=== PATIENT | male | born 1945 | race Caucasian/White ===

== ENCOUNTER 2017-03-14 11:42 | Outpatient (CLI) | payer MEDICARE, OTHER | END 2017-03-14 11:43 | disposition home or self-care (01) | DX: C61 Malignant neoplasm of prostate (principal); M06.00 Rheumatoid arthritis without rheumatoid factor, unspecified site ==

== ENCOUNTER 2017-07-14 11:47 | Emergency (ER) | payer MEDICARE, OTHER ==
[2017-07-14] MEDS ORDERED: methylPREDNISolone SUCCINATE 125 MG/2 ML VIAL IVP STA (12:54)
--- NOTE | 2017-07-14 12:57 | ED Physician Documentation ---
History of Present Illness - Stated complaint Stated Complaint: L LEG PX - Chief complaint Chief Complaint: General - History obtained from History obtained from: Patient - History of Present Illness Timing: Other (72-year-old gentleman with long-standing severe rheumatoid arthritis. Is on low-dose prednisone at 5 mg a day and gets a Remicade infusion infusion every 5 weeks. 2 weeks ago he got his infusion, but he notes that he was from a different clothes shaker than his usual infusion. Approximately 10 days ago he developed without specific trauma severe pain to the bottom of the foot radiating to the toes and then up to the ankle on the left and sometimes up to the calf and distal posterior thigh. It has come and gone and is not controlled by his usual pain medication. He has had spasms in the leg on and off. There is no associated fever, shortness of breath, or chest pain. He does have long-standing severe neuropathy in his feet, and basically cannot feel his feet at all.) Review of Systems Constitutional: denies: Fever, Chills Cardiac: denies: Chest pain / pressure, Palpitations Respiratory: denies: Dyspnea, Cough GI: denies: Abdominal Pain, Vomiting, Diarrhea PD PAST MEDICAL HISTORY - Past Medical History Past Medical History: Yes Cardiovascular: Hypertension Respiratory: None Endocrine/Autoimmune: HyPOthyroidism GI: GI bleed, Hemorrhoids : Benign prostate hypertrophy, Retention, Frequency, Kidney stones HEENT: None Psych: Depression Musculoskeletal: Rheumatoid arthritis Derm: Herpes zoster - Past Surgical History Past Surgical History: Yes General: Appendectomy, Colonoscopy Ortho: Knee replacement, Other HEENT: Tonsil/Adenoidectomy - Present Medications Home Medications: Ambulatory Orders Medication Instructions Recorded Confirmed Alendronate Sodium [Fosamax] 70 mg PO DAILY 04/15/13 07/14/17 Chlorpheniramine Maleate [Allergy 4 mg PO BID PRN 04/15/13 07/14/17 Relief] Cholecalciferol (Vitamin D3) 2,000 unit PO DAILY 04/15/13 07/14/17 [Vitamin D] Cyanocobalamin (Vitamin B-12) 2,000 mcg PO DAILY 04/15/13 07/14/17 [Vitamin B-12] Docusate Sodium [Stool Softener] 300 mg PO DAILY 04/15/13 07/14/17 Magnesium Oxide [Magnesium] 500 mg PO DAILY 04/15/13 07/14/17 Metoprolol Tartrate [Lopressor] 25 mg PO BID 04/15/13 07/14/17 Multivitamin [Multi-Vitamin Daily] 1 each PO DAILY 04/15/13 07/14/17 Prednisone 5 mg PO DAILY 04/15/13 07/14/17 oxyCODONE/ACET 5/325 [Percocet 5 2 each PO Q4-6H PRN 04/15/13 07/14/17 mg/325 mg] Bicalutamide 50 mg PO DAILY 10/27/15 07/14/17 Aspirin [Aspir-Low] 81 mg PO DAILY 01/25/16 07/14/17 Remicade 500 mg IV ONCE 01/25/16 07/14/17 predniSONE [Deltasone] 20 mg PO [id number] #[id number] tab 07/14/17 - Allergies Allergies/Adverse Reactions: Allergies Allergy/AdvReac Type Severity Reaction Status Date / Time Penicillins Allergy Unknown Itching Verified 07/14/17 12:06 cortisone [Cortisone] AdvReac Intermediate Hallucinati Verified 07/14/17 12:06 ons sulfasalazine AdvReac Intermediate rapid Verified 07/14/17 12:06 [From Sulfazine] heart rate - Social History Does the pt smoke?: No Smoking Status: Never smoker Does the pt have substance abuse?: No - Immunizations Immunizations are current?: Yes PD ED PE NORMAL - Vitals Vital signs reviewed: Yes - General General: Alert and oriented X 3, No acute distress - Cardiac Cardiac: RRR, No murmur - Respiratory Respiratory: No respiratory distress, Clear bilaterally - Abdomen Abdomen: Non tender - Extremities Extremities: Other (Left leg is swollen, he is insensate about the feet, but has severe tenderness of the ankle and mild tenderness of the calf. The foot is warm and well perfused, although pedal pulses are not palpable.) - Neuro Neuro: Alert and oriented X 3, Normal speech - Psych Psych: Normal mood, Normal affect Results - Vitals Vitals: Vital Signs - 24 hr 07/14/17 11:59 Temperature 36.8 C Heart Rate 104 H Respiratory 20 Rate Blood Pressure 157/96 H O2 Saturation 98 Oxygen O2 Source Room air - Labs Labs: Laboratory Tests 07/14/17 07/14/17 07/14/17 13:06 13:06 15:15 WBC 20.2 H RBC 4.22 L Hgb 13.5 L Hct 39.1 L MCV 92.7 MCH 32.0 H MCHC 34.5 RDW 13.5 Plt Count 224 MPV 7.1 L Neut # 17.1 H Lymph # 1.2 L Shackelford # 1.7 H Eos # 0.0 Baso # 0.1 Absolute Nucleated RBC 0.00 Nucleated RBCs 0.0 Manual Slide Review Indicated Platelet Estimate NORMAL (130-450,000) Platelet Morphology PLATELET CLUMPING RBC Morph Micro Appear NORMAL APPEARANCE Sodium 134 L Potassium 4.2 Chloride 102 Carbon Dioxide 23 Anion Gap 9.0 BUN 34 H Creatinine 1.0 Estimated GFR (MDRD) 73 L Glucose 160 H Calcium 9.3 Total Bilirubin 0.9 AST 30 ALT 19 Alkaline Phosphatase 74 Total Protein 8.2 Albumin 4.0 Globulin 4.2 Albumin/Globulin Ratio 1.0 Lipase 21 L Fluid Source SYNOVIAL Fluid Color BLOODY Fluid Clarity BLOODY Fluid WBC UNMANNED EQUIPMENT OPERATOR Fluid RBC Not Reportable Fluid Neutrophils % 83 Fluid Lymphocytes % 17 Fld Mesothelial Cell % Not Reportable Fluid Crystals NONE SEEN - Rads (name of study) L leg DVt sono Radiology: Prelim report reviewed (neg for DVt per Dr Ayala) PD MEDICAL DECISION MAKING - ED course ED course: 72-year-old gentleman with severe RA presents with poorly differentiated leg pain that L on exam seems to stem from the ankle joint. X-rays were negative except for MTP dislocations with which the orthopedic clinical sales consultant felt were chronic. He taps the joints, no crystals, 83% neutrophils. Because of some clotting they were unable to tell me a total white blood cell counts. Dr. Purvis was notified of this and felt that it probably was not an infection but we can watch the cultures. In the meantime we will burst him with steroids for likely RA flare. - Consults Consults: Consulted (name) (Ck Purvis, drawer in stitch bonding machine ortho, he will see pt, potentially arthrocentesis of L ankle [id number]) Departure - Departure Disposition: 01 Home, Self Care Clinical Impression: Left leg pain Rheumatoid arthritis Qualifiers: Rheumatoid arthritis location: unspecified site Rheumatoid factor presence: with rheumatoid factor Qualified Code(s): M05.9 - Rheumatoid arthritis with rheumatoid factor, unspecified Leukocytosis Qualifiers: Leukocytosis type: leukemoid reaction Qualified Code(s): D72.823 - Leukemoid reaction Condition: Good Record reviewed to determine appropriate education?: Yes Instructions: ED Arthritis Rheumatoid Prescriptions: predniSONE [Deltasone] 20 mg PO [id number] #21 tab Comments: Call your doctor to arrange a follow-up appointment, make the next available appointment. In the interim, return anytime if worse or if new symptoms develop. Your blood pressure was elevated today on check into the emergency department. This does not mean that you have hypertension, it is a common phenomenon to come to the emergency department and have elevated blood pressure. I recommend that she see her primary care physician within the week to have it rechecked when you are feeling better.
[2017-07-14] MEDS ORDERED: methylPREDNISolone SUCCINATE 125 MG/2 ML VIAL ONE (13:18)
[2017-07-14 13:20] LABS: BASOPHILS # (AUTO) 0.1 10^3/uL (0.0-0.1); BASOPHILS % (AUTO) 0.5 %; EOSINOPHILS % (AUTO) 0.1 %; HCT - HEMATOCRIT 39.1 % (42.0-52.0); HGB - HEMOGLOBIN 13.5 g/dL (14.0-18.0); LYMPHOCYTES # (AUTO) 1.2 10^3/uL (1.5-3.5); LYMPHOCYTES % (AUTO) 6.2 %; MEAN CORPUSCULAR HGB CONC 34.5 g/dL (32.0-36.0); MEAN CORPUSCULAR VOLUME 92.7 fL (80.0-94.0); MEAN PLATELET VOLUME 7.1 fL (7.4-11.4); MONOCYTES # (AUTO) 1.7 10^3/uL (0.0-1.0); MONOCYTES % (AUTO) 8.6 %; NEUTROPHILS # (AUTO) 17.1 10^3/uL (1.5-6.6); NEUTROPHILS % (AUTO) 84.6 %; RED BLOOD COUNT 4.22 10^6/uL (4.70-6.10); RED CELL DISTRIBUTION WIDTH 13.5 % (12.0-15.0); UNCORRECTED WHITE BLOOD COUNT 20.2 x10^3/uL; WHITE BLOOD COUNT 20.2 x10^3/uL (4.8-10.8)
[2017-07-14 13:25] LABS: BILIRUBIN,TOTAL 0.9 mg/dL (0.2-1.0); CALCIUM 9.3 mg/dL (8.5-10.3); POTASSIUM 4.2 mmol/L (3.5-5.0); TOTAL PROTEIN 8.2 g/dL (6.7-8.2)
--- NOTE | 2017-07-14 14:09 | Ultrasound Report ---
LEFT LEG VENOUS DUPLEX: 07/14/2017 CLINICAL INDICATION: Swelling, pain. TECHNIQUE: Real-time sonographic vascular imaging was performed by the lunchroom worker through the left l ower extremity utilizing both color flow and Doppler spectral analysis. Multiple call center support representative stati c images were saved for review. FINDINGS: A left lower extremity venous sonogram is performed revealing the common femoral, superfici al femoral, profunda femoris, and popliteal veins to be adequately visualized without intraluminal de fects. There is normal venous compression, augmentation, phasicity, and spontaneity of venous flow. I n the calf, the visualized more cephalad portions of posterior tibial and peroneal veins are grossly compressible, without filling defects. IMPRESSION: NO EVIDENCE OF DEEP VENOUS THROMBOSIS. JOB #: [id number] EXT JOB #:[id number]
[2017-07-14 14:14] LABS: PLATELET ESTIMATE, MANUAL NORMAL (130-450,000) (NORMAL); PLATELET MORPHOLOGY PLATELET CLUMPING (NORMAL)
[2017-07-14] MEDS ORDERED: LIDOCAINE 2%-EPI 1:100000 20 ML MDV ONE (15:11)
--- NOTE | 2017-07-14 15:12 | XRAY Preliminary Report ---
Exam: XR Ankle 3 View LT IMPRESSION: Soft tissue swelling. [facility] SITE ID: [id number]
--- NOTE | 2017-07-14 15:14 | XRAY Preliminary Report ---
Exam: XR Foot 3 View LT IMPRESSION: 1. Soft tissue swelling. 2. Third MTP dislocation. [facility] SITE ID: [id number]
--- NOTE | 2017-07-14 15:15 | XRAY Report ---
EXAM: LEFT ANKLE RADIOGRAPHY EXAM DATE: 07/14/2017 02:40 PM. CLINICAL HISTORY: Leg pain, neuropathy,. COMPARISON: None. TECHNIQUE: 3 views. FINDINGS: Bones: Osteopenia. Small plantar calcaneal spur. No definite fracture or other bone lesion. Joints: Normal. No effusion. No subluxations. The ankle mortise is normally aligned. Soft Tissues: Mild soft tissue swelling over the malleoli. IMPRESSION: Soft tissue swelling. [facility] Referring Provider Line: [phone] SITE ID: [id number]
--- NOTE | 2017-07-14 15:17 | XRAY Report ---
EXAM: LEFT FOOT RADIOGRAPHY EXAM DATE: 07/14/2017 02:40 PM. CLINICAL HISTORY: Leg pain, neuropathy,. COMPARISON: None. TECHNIQUE: 3 views. FINDINGS: Bones: Osteopenia. Small plantar calcaneal spur. No definite acute fracture or other bone lesion. Joints: Complete dorsal dislocation of third middle phalanx at MTP joint. Joint spaces are generally well preserved. Soft Tissues: Diffuse soft tissue swelling. IMPRESSION: 1. Soft tissue swelling. 2. Third MTP dislocation. [facility] Referring Provider Line: [phone] SITE ID: [id number]
[2017-07-14 15:42] LABS: BF CLARITY BLOODY; BF COLOR BLOODY
--- NOTE | 2017-07-14 15:49 | CONSULTATION NOTE ---
DATE OF CONSULTATION: 07/14/2017 00:00:00 REQUESTING PROVIDER: Dr. Omar Martel, ED. CHIEF COMPLAINT: "My left ankle hurts." HISTORY OF PRESENT ILLNESS: The patient is a 72-year-old male with rheumatoid arthritis who has been on immunosuppressive drugs to control his inflammatory arthritis and also has a history of peripheral neuropathy who presents to the emergency room now with a 2-day history of increasing of le ft ankle pain. This has affected his ability to walk. He has had similar episodes in the past due to his rheumatoid arthritis, although it has never been quite this severe. The patient denies any fever or chills. PHYSICAL EXAMINATION: On exam today, the patient's left leg shows some mild diffuse edema in his lowe r extremity. He has some mild diffuse tenderness on palpation on the anterior aspect of his ankle. He has about 30 degrees of total ankle motion today with mild discomfort. Minimal erythema or warmth ar ound the ankle or calf area. STUDIES: X-rays that were taken shows no significant abnormalities about the ankle. LABORATORY: Has a white count elevated at 20,200. ASSESSMENT: Left ankle synovitis - unclear etiology. Could be a flareup of his rheumatoid arthritis v ersus other inflammatory arthritis such as gout versus a possible infectious origin. PLAN: I have discussed possible complications and diagnoses with the patient. He is agreeable to proc eed with an aspiration of his left ankle. After Betadine skin preparation, a 22 gauge needle was inserted into the anterior medial aspect of hi s left ankle. We were able to aspirate about 0.5 mL of blood-tinged synovial fluid. The patient tiffanie ated the aspiration procedure well. We sent the syringe with the fluid aspirated to microbiology for cell count, crystal analysis, stat G evelyn stains and aerobic and anaerobic cultures and sensitivities. Depending on the initial fluid analysis, will determine if we will be able to follow this as an outpa tient versus possible surgical intervention. JOB #: [id number] EXT JOB #:[id number]
[2017-07-14 16:23] LABS: LYMPHOCYTES %,BODY FLUID 17; NEUTROPHILS %, BF 83 %
[2017-07-14 16:51] VITALS: BP 138/90
== END 2017-07-14 16:45 | disposition home or self-care (01) ==
LOC: ED 11:47
DX: M65.872 Other synovitis and tenosynovitis, left ankle and foot (principal); M05.9 Rheumatoid arthritis with rheumatoid factor, unspecified; G62.9 Polyneuropathy, unspecified; D72.823 Leukemoid reaction; I10 Essential (primary) hypertension; E03.9 Hypothyroidism, unspecified; Z79.52 Long term (current) use of systemic steroids; Z79.82 Long term (current) use of aspirin
CPT/HCPCS: 20605; 36415; 80053; 83690; 85025; 87070; 87205; 89051; 89060; 96374; 99282; 99284

== ENCOUNTER 2018-02-19 21:47 | Outpatient (CLI) | payer MEDICARE, OTHER ==
--- NOTE | 2018-02-19 22:39 | Ultrasound Preliminary Report ---
Exam: US DUPLEX EXT VEINS RIGHT IMPRESSION: No evidence for deep venous thrombosis. [facility] SITE ID: [id number]
--- NOTE | 2018-02-19 22:40 | Ultrasound Report ---
EXAM: RIGHT LOWER EXTREMITY VENOUS ULTRASOUND EXAM DATE: 02/19/2018 10:31 PM. CLINICAL HISTORY: PERIPHERAL VASCULAR DISEASE, UNSPECIFIED. COMPARISON: None. TECHNIQUE: Real-time sonographic vascular imaging was performed by the warp scouring vat tender through the lower extremity utilizing both color-flow and Doppler spectral analysis. Multiple event marketing representative static koffi ges were saved for review. FINDINGS: Common Femoral Vein (CFV): Normal. CFV-GSV Junction: Normal. Profunda Femoral Vein (PFV): Normal. Femoral Vein (FV) Prox: Normal. Femoral Vein (FV) Mid: Normal. Femoral Vein (FV) Dist: Normal. Popliteal Vein: Normal. Posterior Tibial Veins: Normal. Peroneal Veins: Normal. Other: None. IMPRESSION: No evidence for deep venous thrombosis. [facility] Referring Provider Line: [phone] SITE ID: [id number]
== END 2018-02-19 21:48 | disposition home or self-care (01) ==
LOC: DI 21:47
PROVIDERS: ATTEND Podiatrist
DX: I73.9 Peripheral vascular disease, unspecified (principal); R60.0 Localized edema; M79.661 Pain in right lower leg

== ENCOUNTER 2018-04-09 12:04 | Outpatient (CLI) | payer MEDICARE, OTHER | END 2018-04-09 12:05 | disposition home or self-care (01) | LOC: LAB 12:04 | PROVIDERS: ATTEND Urology | DX: C61 Malignant neoplasm of prostate (principal) | CPT/HCPCS: 36415; 84153 ==

== ENCOUNTER 2018-10-21 21:30 | Outpatient (CLI) | payer MEDICARE, OTHER ==
[2018-10-22 00:03] LABS: ALBUMIN 3.3 g/dL (3.2-5.5); ALBUMIN/GLOBULIN RATIO 1.1 (1.0-2.2); BILIRUBIN,TOTAL 0.5 mg/dL (0.2-1.0); CALCIUM 8.5 mg/dL (8.5-10.3); CREATININE 1.1 mg/dL (0.6-1.2); TOTAL PROTEIN 6.4 g/dL (6.7-8.2)
[2018-10-22 00:04] LABS: BASOPHILS # (AUTO) 0.1 10^3/uL (0.0-0.1); EOSINOPHILS # (AUTO) 0.1 10^3/uL (0.0-0.7); EOSINOPHILS % (AUTO) 1.6 %; HGB - HEMOGLOBIN 12.8 g/dL (14.0-18.0); LYMPHOCYTES # (AUTO) 1.7 10^3/uL (1.5-3.5); LYMPHOCYTES % (AUTO) 20.7 %; MEAN CORPUSCULAR HEMOGLOBIN 31.8 pg (27.0-31.0); MEAN CORPUSCULAR HGB CONC 34.4 g/dL (32.0-36.0); MEAN CORPUSCULAR VOLUME 92.4 fL (80.0-94.0); MEAN PLATELET VOLUME 7.1 fL (7.4-11.4); MONOCYTES # (AUTO) 0.8 10^3/uL (0.0-1.0); MONOCYTES % (AUTO) 9.6 %; NEUTROPHILS # (AUTO) 5.7 10^3/uL (1.5-6.6); NEUTROPHILS % (AUTO) 67.1 %; PLT - PLATELET COUNT 207 10^3/uL (130-450); RED BLOOD COUNT 4.01 10^6/uL (4.70-6.10); RED CELL DISTRIBUTION WIDTH 14.3 % (12.0-15.0); WHITE BLOOD COUNT 8.4 x10^3/uL (4.8-10.8)
== END 2018-10-21 23:59 | disposition home or self-care (01) ==
LOC: LAB.R 21:30
DX: M06.00 Rheumatoid arthritis without rheumatoid factor, unspecified site (principal); B95.62 Methicillin resistant Staphylococcus aureus infection as the cause of diseases classified elsewhere
CPT/HCPCS: 80053; 85025

== ENCOUNTER 2018-10-24 09:48 | Emergency (ER) | payer MEDICARE, OTHER ==
--- NOTE | 2018-10-24 11:06 | ED Physician Documentation ---
PD HPI HEAD INJURY - Stated complaint Stated Complaint: HEAD INJ - Chief complaint Chief Complaint: Laceration - History obtained from History obtained from: Patient - History of Present Illness Mechanism of head injury: Blow Where head injury occurred: Other (COW) Timing - onset: Today Location of injury: Top Quality of pain: Pain Associated symptoms: No: LOC, AMS, Amnesia, Nausea / vomiting, Neck pain, Paresthesias, Seizures, Ear drainage, Nasal drainage Symptoms improve with: Rest Symptoms worsen with: Palpation Contributing factors: No: Anticoagulated Similar symptoms before: Diagnosis (scalp laceration) Recently seen: Surgery, Other - Additional information Additional information: 73-year-old male who is undergoing antibiotic treatment at [facility] for osteomyelitis was finished with his infusion he stood up and struck his head on a coat rack and lacerated the top of his head. He was able to control bleeding with direct pressure using here now for evaluation. He had no loss of consciousness. Review of Systems Constitutional: denies: Fever, Chills Eyes: denies: Decreased vision Ears: denies: Ear pain Nose: denies: Congestion Throat: denies: Sore throat Respiratory: denies: Cough GI: denies: Vomiting PD PAST MEDICAL HISTORY - Past Medical History Cardiovascular: Hypertension Respiratory: None Endocrine/Autoimmune: HyPOthyroidism GI: GI bleed, Hemorrhoids : Benign prostate hypertrophy, Retention, Frequency, Kidney stones HEENT: None Psych: Depression Musculoskeletal: Rheumatoid arthritis Derm: Herpes zoster - Past Surgical History Past Surgical History: Yes General: Appendectomy, Colonoscopy Ortho: Knee replacement, Other HEENT: Tonsil/Adenoidectomy - Present Medications Home Medications: Ambulatory Orders Medication Instructions Recorded Confirmed Cyanocobalamin (Vitamin B-12) 2,000 mcg PO DAILY 04/15/13 09/11/18 [Vitamin B-12] Magnesium Oxide [Magnesium] 500 mg PO DAILY 04/15/13 09/11/18 Metoprolol Tartrate [Lopressor] 25 mg PO BID 04/15/13 09/11/18 Prednisone 5 mg PO DAILY 04/15/13 09/11/18 Tamsulosin [Flomax] 0.4 mg PO DAILY 09/12/17 09/11/18 Acetaminophen 325 mg PO 10/24/18 10/24/18 Calcium Carbonate [Tums (Calcium 1,000 mg PO BID 10/24/18 10/24/18 Carbonate 500mg)] Ceftriaxone Sodium [Ceftriaxone 2 2 gm IV 10/24/18 10/24/18 gram] Oxycodone HCl 5 mg PO 10/24/18 10/24/18 Simethicone [Gas Relief] 80 mg PO 10/24/18 10/24/18 - Allergies Allergies/Adverse Reactions: Allergies Allergy/AdvReac Type Severity Reaction Status Date / Time Penicillins Allergy Unknown Itching Verified 10/24/18 10:02 cortisone [Cortisone] AdvReac Intermediate Hallucinati Verified 10/24/18 10:02 ons sulfasalazine AdvReac Intermediate rapid Verified 10/24/18 10:02 [From Sulfazine] heart rate - Social History Does the pt smoke?: No Smoking Status: Never smoker Does the pt drink ETOH?: No Does the pt have substance abuse?: No - Immunizations Immunizations are current?: Yes - POLST Patient has POLST: No PD ED PE NORMAL - Vitals Vital signs reviewed: Yes (hypertensive) - General General: Alert and oriented X 3, No acute distress, Well developed/nourished - HEENT HEENT: PERRL, EOMI, Other (There is a small 1cm laceration to the vertex of the scalp) - Neck Neck: Supple, no meningeal sign, No bony TTP - Respiratory Respiratory: No respiratory distress - Derm Derm: Normal color, Warm and dry, No rash - Extremities Extremities: Other (The right foot is dressed and the dressing is not taken down. There is deformity indicating amputation. ) - Neuro Neuro: Alert and oriented X 3, circuit breaker mechanic 2-12 intact, No motor deficit, No sensory deficit, Normal speech Eye Opening: Spontaneous Motor: Obeys Commands Verbal: Oriented GCS Score: 15 - Psych Psych: Normal mood, Normal affect Results - Vitals Vitals: Vital Signs - 24 hr 10/24/18 09:58 Temperature 36.2 C L Heart Rate 90 Respiratory 16 Rate Blood Pressure 121/82 H O2 Saturation 98 Oxygen O2 Source Room air Procedures - Laceration (location) scalp Length in cm: 1.5 Wound type: Linear, Clean Neurovascular status: Sensory intact, Motor intact, Vascular intact Wound Preparation: Irrigated copiously NS, Wound explored, To the base Skin layer closure: Dermabond Other: Patient tolerated well, No complications, Neurovascular intact, Dressing applied, Tetanus UTD Complexity: Simple PD MEDICAL DECISION MAKING - ED course Complexity details: considered differential, d/w patient ED course: 73-year-old male with a laceration to the top of his head that is bleeding has Dermabond applied to the laceration. Departure - Departure Disposition: 01 Home, Self Care Clinical Impression: Scalp laceration Qualifiers: Encounter type: initial encounter Qualified Code(s): S01.01XA - Laceration without foreign body of scalp, initial encounter Condition: Stable Instructions: ED Laceration Facial Skin Glue Follow-Up: Antoni Villarreal DO [Primary Care Provider] -
[2018-10-24 11:13] VITALS: BP 149/92
== END 2018-10-24 11:13 | disposition home or self-care (01) ==
LOC: ED 09:48
DX: S01.01XA Laceration without foreign body of scalp, initial encounter (principal); W22.8XXA Striking against or struck by other objects, initial encounter; I10 Essential (primary) hypertension; E03.9 Hypothyroidism, unspecified; Z96.659 Presence of unspecified artificial knee joint
CPT/HCPCS: 12001; 99282; 99283

== ENCOUNTER 2019-12-10 13:12 | Outpatient (CLI) | payer MEDICARE, OTHER ==
--- NOTE | 2019-12-11 08:53 | XRAY Report ---
Reason: RT FOOT PAIN Procedure Date: 12/10/2019 Accession Number: [id number] / [id number] Procedure: XR - Foot 3 View RT CPT Code: Final Report FULL RESULT: EXAM: RIGHT FOOT RADIOGRAPHY EXAM DATE: 12/10/2019 01:24 PM. CLINICAL HISTORY: Right foot pain. COMPARISON: Right foot radiographs from 03/01/2018. TECHNIQUE: 3 views. FINDINGS: Bones: Since the prior examination, there has been amputation of the second toe. There is absence of the second through fifth metatarsal heads. There is mixed lucent and sclerotic appearance of the third proximal phalanx, which could represent sequela of previous fracture or potentially chronic osteomyelitis. There is also a possible cortical disruption and obliquely oriented lucency through the mid fifth proximal phalanx, which could represent acute or subacute fracture. Multiple areas of osseous lucency are demonstrated at the second, third, and fourth tarsometatarsal joints. Joints: There is metatarsus primus varus configuration with approximately 6 mm medial subluxation of the right first proximal phalanx upon the metatarsal. There is widening of the third through fifth metatarsophalangeal joints. Multiple areas of subchondral lucency are demonstrated at the naviculocuneiform and tarsometatarsal joints. The fifth metatarsal appears to be dislocated laterally, positioned adjacent to the cuboid. Soft Tissues: Mild diffuse soft tissue swelling is present in the foot. IMPRESSION: 1. Extensive destructive changes in the right midfoot and forefoot, which are new from the prior examination. These include absence of the second through fifth metatarsal heads, new areas of lucency at the naviculocuneiform and tarsometatarsal joints, subluxation at the first MTP joint, and dislocation at the fifth TMT joint. 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 Note that a component of infection would be difficult to exclude in this setting, and clinical correlation is required. 2. Mixed lucent and sclerotic appearance of the third proximal phalanx, which may represent sequela of chronic fracture or chronic osteomyelitis. 3. Findings suggestive of acute or subacute fracture of the right fifth proximal phalanx. [facility]
--- NOTE | 2019-12-12 16:30 | Ultrasound Report ---
Reason: RT FOOT PAIN Procedure Date: 12/10/2019 Accession Number: [id number] / [id number] Procedure: US - Duplex Lwr Ext Arterial RT CPT Code: Final Report FULL RESULT: EXAM: RIGHT LOWER EXTREMITY ARTERIAL DOPPLER ULTRASOUND EXAM DATE: 12/10/2019 02:42 PM. CLINICAL HISTORY: Right foot pain. Hypertension. COMPARISON: None. TECHNIQUE: Real-time sonographic vascular imaging was performed by the music educator, utilizing color-flow, Doppler flow, and spectral analysis. Multiple shipping services sales representative static images were saved for review. FINDINGS: Right Leg: PERSONNEL PSYCHOLOGIST: PSV 90.5 cm/sec. Tri waveform. PSFA: PSV 70.9 cm/sec. Tri waveform. MSFA: PSV 82.0 cm/sec. Tri waveform. DSFA: PSV 90.4 cm/sec. Tri waveform. PFA: PSV 60.2 cm/sec. Tri waveform. POP: PSV 76.3 cm/sec. Tri waveform. CAROLA: PSV 58.8 cm/sec. Tri waveform. ASSISTANT MEDIA PLANNER: PSV 70.9 cm/sec. Tri waveform. PER: PSV 43.9 cm/sec. Tri waveform. DPA: PSV 58.8 cm/sec. Tri waveform. IMPRESSION: 1. No hemodynamically significant focal stenosis. [facility]
== END 2019-12-10 13:13 | disposition home or self-care (01) ==
LOC: DI 13:12
PROVIDERS: ATTEND Internal Medicine
DX: M79.671 Pain in right foot (principal); R93.6 Abnormal findings on diagnostic imaging of limbs

== ENCOUNTER 2020-03-17 11:05 | Outpatient (CLI) | payer MEDICARE, OTHER ==
[2020-03-17 11:16] LABS: BASOPHILS % (AUTO) 0.3 %; EOSINOPHILS # (AUTO) 0.1 10^3/uL (0.0-0.7); EOSINOPHILS % (AUTO) 0.5 %; HGB - HEMOGLOBIN 14.3 g/dL (14.0-18.0); LYMPHOCYTES # (AUTO) 1.6 10^3/uL (1.5-3.5); LYMPHOCYTES % (AUTO) 16.9 %; MEAN CORPUSCULAR HEMOGLOBIN 32.5 pg (27.0-31.0); MEAN CORPUSCULAR HGB CONC 34.5 g/dL (32.0-36.0); MEAN CORPUSCULAR VOLUME 94.1 fL (80.0-94.0); MEAN PLATELET VOLUME 8.4 fL (7.4-11.4); MONOCYTES # (AUTO) 0.8 10^3/uL (0.0-1.0); MONOCYTES % (AUTO) 8.2 %; NEUTROPHILS # (AUTO) 7.1 10^3/uL (1.5-6.6); NEUTROPHILS % (AUTO) 73.4 %; PLT - PLATELET COUNT 282 10^3/uL (130-450); RED CELL DISTRIBUTION WIDTH 13.7 % (12.0-15.0); WHITE BLOOD COUNT 9.7 x10^3/uL (4.8-10.8)
[2020-03-17 11:27] LABS: ALBUMIN 3.6 g/dL (3.2-5.5); ALBUMIN/GLOBULIN RATIO 1.1 (1.0-2.2); BILIRUBIN,TOTAL 0.7 mg/dL (0.2-1.0); CALCIUM 8.9 mg/dL (8.5-10.3); CREATININE 0.8 mg/dL (0.6-1.2); TOTAL PROTEIN 6.8 g/dL (6.7-8.2)
== END 2020-03-17 23:59 | disposition home or self-care (01) ==
LOC: LAB.R 11:05
PROVIDERS: ATTEND Internal Medicine Rheumatology
DX: M05.79 Rheumatoid arthritis with rheumatoid factor of multiple sites without organ or systems involvement (principal)
CPT/HCPCS: 80053; 85025; 85651

== ENCOUNTER 2020-04-23 12:15 | Outpatient (CLI) | payer MEDICARE, OTHER | END 2020-04-23 12:16 | disposition E | LOC: EMS 12:15 | PROVIDERS: ATTEND Surgery | DX: I46.9 Cardiac arrest, cause unspecified (principal) | CPT/HCPCS: A0425; A0429 ==